=== PATIENT | female | born 1985 | race Caucasian/White ===

== ENCOUNTER 2017-07-14 16:04 | Emergency (ER) | payer BC ==
[2017-07-14 16:16] VITALS: BP 176/103
[2017-07-14] MEDS ORDERED: Proparacaine 0.5% Ophth Soln 15 ML Bottle EYELF ONE (16:23)
[2017-07-14] MEDS ORDERED: Benoxinate/Fluorescein 0.4-0.25% Ophth Soln 5 ML Bottle EYERT ONE (16:24)
[2017-07-14] MEDS ORDERED: Erythromycin Base 0.5% Ophth Oint 1 GM Tube EYERT ONE (16:51)
--- NOTE | 2017-07-14 16:56 | EDM.PDOC ---
ED HPI GENERAL MEDICAL PROBLEM - General Chief Complaint: Eye Problems Stated Complaint: R EYE PROBLEMS Time Seen by Provider: 07/14/17 16:32 Source of Information: Reports: Patient History Limitations: Reports: No Limitations - History of Present Illness INITIAL COMMENTS - FREE TEXT/NARRATIVE: Patient is a 31-year-old female presents ED with sensation of a foreign object in her right eye. States this morning while going to work starting experiencing some discomfort to her right eye and started to rub it. Has had excessive tearing throughout the course today. Has flushed it multiple times with no luck. States she has no pain but sensation of foreign objects present. She wears glasses and no contacts. Treatments [employer]ANGER: Reports: Other (see below) Other Treatments [employer]ANGER: flushed eyes right eye Pain Score (Numeric/FACES): 4 - Related Data Allergies Allergy/AdvReac Type Severity Reaction Status Date / Time No Known Allergies Allergy Verified 07/14/17 16:16 Home Meds: Home Meds Cyclobenzaprine HCl [Cyclobenzaprine HCl] 1 tab PO ASDIRECTED PRN 07/14/17 [ History] Levonorgestrel-Ethin Estradiol [Aviane-28 Tablet] 1 tab PO DAILY 07/14/17 [ History] Multivitamin [Multi-Day Vitamins] 1 each PO DAILY 07/14/17 [History] Pantoprazole Sodium [Pantoprazole Sodium] 1 tab PO DAILY 07/14/17 [History] Sucralfate [Sucralfate] 1 dose PO BID 07/14/17 [History] Venlafaxine HCl [Venlafaxine ER] 1 tab PO DAILY 07/14/17 [History] Past Medical History Psychiatric History: Reports: Depression - Past Surgical History HEENT Surgical History: Reports: Tonsillectomy GI Surgical History: Reports: Bariatric Procedure Musculoskeletal Surgical History: Reports: Other (See Below) Other Musculoskeletal Surgeries/Procedures:: back surgery x 2 Social & Family History - Family History Family Medical History: Noncontributory - Tobacco Use Smoking Status *Q: Never Smoker - Caffeine Use Caffeine Use: Reports: Coffee - Recreational Drug Use Recreational Drug Use: No ED ROS GENERAL - Review of Systems Review Of Systems: ROS reveals no pertinent complaints other than HPI. ED EXAM GENERAL W FULL EYE - Physical Exam Exam: See Below Exam Limited By: No Limitations General Appearance: Alert, WD/WN, No Apparent Distress Eye Exam: Right Eye: Conjunctival Injection (None found), Corneal Abrasion, Bilateral Eye: EOMI, PERRL, Vision Changes (None stated) Visual Acuity (R) 20/: 70 Visual Acuity (L) 20/: 70 With Correction: No Eyelids: Right: Normal Appearance, Foreign Body (None found), Infraorbital Anesthesia, Lid Everted for Exam Conjunctiva & Sclera: Right: Normal Appearance, Foreign Body (None found) Cornea Exam: Right: Corneal Abrasion (Linear 9:00), Foreign Body (None found), Examined with Flourescein Extraocular Movements: Bilateral: Intact Pupils: Normal Accommodation Pupillary Size: Bilateral: 4 mm Pupillary Reaction: Bilateral: Brisk Ears: Hearing Grossly Normal Nose: Normal Inspection Throat/Mouth: Normal Voice, No Airway Compromise Neck: Normal Inspection, Supple Respiratory/Chest: No Respiratory Distress, No Accessory Muscle Use Cardiovascular: Normal Peripheral Pulses, Regular Rate, Rhythm Neurological: Alert, Oriented, CN II-XII Intact, Normal Cognition, No Motor/ Sensory Deficits Psychiatric: Normal Affect, Normal Mood Skin Exam: Warm, Dry Course - Vital Signs Last Recorded V/S: Last Vital Signs Temp 97.8 F 07/14/17 16:08 Pulse 86 07/14/17 16:08 Resp 18 07/14/17 16:08 BP 176/103 H 07/14/17 16:08 Pulse Ox 99 07/14/17 16:08 - Orders/Labs/Meds Meds: Medications Discontinued Medications Generic Name Dose Route Start Last Admin Trade Name John PRN Reason Stop Dose Admin Erythromycin 1 gm 07/14/17 16:51 07/14/17 17:12 Erythromycin 0.5% Ophth Oint EYERT 07/14/17 16:52 1 applic ONETIME ONE Administration Fluorescein Sodium/Benoxinate HCl 1 ml 07/14/17 16:24 07/14/17 16:26 Fluress Ophth Soln EYERT 07/14/17 16:25 1 ml ONETIME ONE Administration Proparacaine HCl 1 ml 07/14/17 16:23 07/14/17 16:26 Proparacaine 0.5% Ophth Soln EYELF 07/14/17 16:24 1 ml ONETIME ONE Administration - Re-Assessments/Exams Free Text/Narrative Re-Assessment/Exam: Corneal abrasion present. Erythromycin ointment ordered. Tube sent with patient. Discharge instructions as documented. Departure - Departure Time of Disposition: 17:14 Disposition: Home, Self-Care 01 Condition: Good Clinical Impression: Corneal abrasion - Discharge Information Instructions: Corneal Abrasion, [id number] Referrals: Jeannie Brock, NETWORK DESIGNER [Primary Care Provider] - Forms: ED Department Discharge Additional Instructions: As discussed you have a corneal abrasion. Treatment is erythromycin 1 cm ribbon to the right eye 4 times daily for the next 7 days. Tylenol and ibuprofen and alternate fashion for pain. Follow-up with your Jaquan interest in the next 2 days for reevaluation. Return to ED for any new or worsening symptoms. Do not rub your eyes.
== END 2017-07-14 17:16 | disposition home or self-care (01) ==
LOC: JD.ED 16:04
DX: Z79.899 Other long term (current) drug therapy (principal); S05.01XA Injury of conjunctiva and corneal abrasion without foreign body, right eye, initial encounter; X58.XXXA Exposure to other specified factors, initial encounter
CPT/HCPCS: 99283; A9270

== ENCOUNTER 2017-10-28 16:56 | Emergency (ER) | payer BC ==
--- NOTE | 2017-10-28 17:27 | EDM.PDOC ---
ED HPI GENERAL MEDICAL PROBLEM - General Chief Complaint: Behavioral/Psych Stated Complaint: HIGH BP Time Seen by Provider: 10/28/17 17:10 Source of Information: Reports: Patient History Limitations: Reports: No Limitations - History of Present Illness INITIAL COMMENTS - FREE TEXT/NARRATIVE: Patient is a 32-year-old female with a history of anxiety and depression who presents ED with concerns of elevated blood pressure. Patient was evaluated by PCP today since patient was experiencing persistent headache after recent fall this weekend. Patient fell hitting the right side of her head on the ground. There was no loss of conscious. Headache has been mild since onset. There is no vision changes, nausea/vomiting, neck pain, no n/t to extremities, chest pain, SOB, dysuria, or any additional complaints. She was seen by PCP and had CT of the head obtained. During evaluation it was found patient's blood pressure was quite elevated which is abnormal. Labs were obtained prior to admission to the ED. Patient was referred to the ED to discuss results and also further manage the BP. Of note patient was seen in the walk-in clinic at [facility] 2 weeks ago for sinus infection. At that time it was found that the patient's blood pressure was quite elevated as well. She has a history of high blood pressure in the past that decreased with losing weight after having gastric bypass. Patient does not consume a high salt diet. She does work on a regular basis. She offers no complaints at this time. She is quite stressed at work. Headache Pain Score (Numeric/FACES): 5 - Related Data Allergies Allergy/AdvReac Type Severity Reaction Status Date / Time No Known Allergies Allergy Verified 07/14/17 16:16 Home Meds: Home Meds Cyclobenzaprine HCl [Cyclobenzaprine HCl] 1 tab PO ASDIRECTED PRN 07/14/17 [ History] Levonorgestrel-Ethin Estradiol [Aviane-28 Tablet] 1 tab PO DAILY 07/14/17 [ History] Multivitamin [Multi-Day Vitamins] 1 each PO DAILY 07/14/17 [History] Pantoprazole Sodium [Pantoprazole Sodium] 1 tab PO DAILY 07/14/17 [History] Sucralfate [Sucralfate] 1 dose PO BID 07/14/17 [History] Venlafaxine HCl [Venlafaxine ER] 1 tab PO DAILY 10/23/17 [History] Hydrochlorothiazide 25 mg PO DAILY #30 tab 10/28/17 [Rx] Venlafaxine HCl [Venlafaxine ER] 75 mg PO DAILY 10/28/17 [History] Past Medical History Psychiatric History: Reports: Depression - Past Surgical History HEENT Surgical History: Reports: Tonsillectomy GI Surgical History: Reports: Bariatric Procedure Musculoskeletal Surgical History: Reports: Other (See Below) Other Musculoskeletal Surgeries/Procedures:: back surgery x 2 Social & Family History - Family History Family Medical History: Noncontributory - Tobacco Use Smoking Status *Q: Former Smoker Used Tobacco, but Quit: Yes Month Tobacco Last Used: two years ago Second Hand Smoke Exposure: No - Caffeine Use Caffeine Use: Reports: Coffee - Recreational Drug Use Recreational Drug Use: No ED ROS GENERAL - Review of Systems Review Of Systems: See Below Constitutional: Reports: No Symptoms HEENT: Reports: No Symptoms Respiratory: Reports: No Symptoms Cardiovascular: Reports: No Symptoms GI/Abdominal: Reports: No Symptoms Musculoskeletal: Reports: No Symptoms Skin: Reports: No Symptoms Neurological: Reports: No Symptoms Psychiatric: Reports: Anxiety, Depression ED EXAM, GENERAL - Physical Exam Exam: See Below Exam Limited By: No Limitations General Appearance: Alert, WD/WN, No Apparent Distress Ears: Hearing Grossly Normal Nose: Normal Inspection Throat/Mouth: Normal Inspection, Normal Voice, No Airway Compromise Neck: Normal Inspection, Supple Respiratory/Chest: No Respiratory Distress, Lungs Clear, Normal Breath Sounds, Chest Non-Tender Cardiovascular: Normal Peripheral Pulses, Regular Rate, Rhythm, No Edema, No Gallop, No JVD, No Murmur, No Rub (Female) Exam: Normal External Exam, Normal Speculum Exam, Normal Bimanual Exam Rectal (Female) Exam: Normal Exam, Normal Rectal Tone Back Exam: Normal Inspection, Full Range of Motion, NT Extremities: Normal Inspection, Normal Range of Motion, Non-Tender, Normal Capillary Refill, No Pedal Edema Neurological: Alert, Oriented, CN II-XII Intact, Normal Cognition, Normal Gait, Normal Reflexes, No Motor/Sensory Deficits Psychiatric: Normal Affect, Normal Mood Skin Exam: Warm, Dry, Intact, Normal Color, No Rash Lymphatic: No Adenopathy Course - Vital Signs Last Recorded V/S: Last Vital Signs Temp 98.0 F 10/28/17 17:04 Pulse 60 10/28/17 18:50 Resp 22 H 10/28/17 18:50 BP 180/113 H 10/28/17 18:50 Pulse Ox 100 10/28/17 18:50 - Orders/Labs/Meds Labs: Laboratory Tests 10/28/17 Range/Units 16:50 TSH 3rd Generation 2.081 (0.358-3.74) uIU/mL Meds: Medications Discontinued Medications Generic Name Dose Route Start Last Admin Trade Name John PRN Reason Stop Dose Admin Hydrochlorothiazide 25 mg 10/28/17 18:11 10/28/17 18:23 Hydrochlorothiazide PO 10/28/17 18:12 25 mg ONETIME ONE Administration - Re-Assessments/Exams Free Text/Narrative Re-Assessment/Exam: CT of the head obtained by PCP did not reveal any acute findings. Labs obtained prior to admission to the ED included CBC and a chem 14. Waiting for results. I also ordered a TSH and EKG. 10/28/17 18:33 Labs obtained today include CBC, chem 14, TSH, and UA. All labs were essentially normal. EKG: Sinus rhytm rate of 74. No acute findings noted. Ordered HCTZ 25mg PO. BP 169/105 trending downward. Will not start patient on any additional HTN medications at this time. Patient will followup with PCP in 1 wk for reevaluation. Lifestyle modifications have been discussed with patient. Discharge instructions as documented. Departure - Departure Time of Disposition: 18:38 Disposition: Home, Self-Care 01 Condition: Good Clinical Impression: Anxiety HTN (hypertension) Qualifiers: Hypertension type: unspecified Qualified Code(s): I10 - Essential (primary) hypertension Prescriptions: Hydrochlorothiazide 25 mg PO DAILY #30 tab Instructions: Hypertension, [id number] Referrals: Jeannie Brock HEATING MECHANIC [Primary Care Provider] - Forms: ED Department Discharge, ED Return to Work/School Form Additional Instructions: Will have you take hydrochlorothiazide 25 mg every day. By a blood pressure machine a local pharmacy and check it daily keeping a log. Bring the blood pressure machine and log with used to appointment with PCP in one week for reevaluation. Inc. lifestyle modification's as we discussed. Continue taking all your home medications as prescribed. Urine anxiety may be a contributing factor to elevated blood pressure. Effexor can worsen anxiety thus with PCP for other options. Return to ED if he developed any new or worsening symptoms. Blood work should be obtained to evaluate electrolytes when seen by PCP.
[2017-10-28] MEDS ORDERED: Hydrochlorothiazide 25 MG Tab PO ONE (18:11)
[2017-10-28 18:54] VITALS: BP 180/113
== END 2017-10-28 18:50 | disposition home or self-care (01) ==
LOC: JD.ED 16:56
DX: F41.9 Anxiety disorder, unspecified (principal); I10 Essential (primary) hypertension; Z79.899 Other long term (current) drug therapy; Z87.891 Personal history of nicotine dependence; S83.91XA Sprain of unspecified site of right knee, initial encounter
CPT/HCPCS: 36415; 70450; 73562; 80053; 81001; 81025; 84443; 93005; 99284; A9270

== ENCOUNTER 2017-11-28 17:59 | Emergency (ER) | payer BC ==
[2017-11-28] MEDS ORDERED: cloNIDine 0.1 MG Tab PO ONE (19:19)
--- NOTE | 2017-11-28 19:30 | EDM.PDOC ---
ED HPI GENERAL MEDICAL PROBLEM - General Chief Complaint: Cardiovascular Problem Stated Complaint: HIGH BLOOD PRESSURE SENT FROM OUR CLINIC Time Seen by Provider: 11/28/17 18:38 Source of Information: Reports: Patient History Limitations: Reports: No Limitations - History of Present Illness INITIAL COMMENTS - FREE TEXT/NARRATIVE: This is a 32-year-old female. She is being treated for high blood pressure. She is on lisinopril 5 mg and hydrochlorothiazide 12.5 mg. Apparently over the last couple of days she has noted her blood pressure is been elevated and she tried to see her family doctor Jeannie Brock M.D. today but she was out of the office so she went to the walk-in clinic. Apparently the blood pressure was elevated there and they sent her to the ER for evaluation. She does take medications for anxiety but she doesn't think that she is particularly anxious at this time. When I walked into the room her blood pressure was 157/104 and it jumped up to 167/131. She states that today she has been having some chest pressure and she feels like her heart is fluttering in her chest as well. She has been on her medications for about 1 month. She denies any recent illnesses. No [id number] medications or decongestants. No colds or coughs now. She recently got over a sinus infection and respiratory infection for which she was on amoxicillin. He denies any nausea and vomiting. With the elevated blood pressure she been lightheaded or she describes it as dizzy but no vertigo. Headache Pain Score (Numeric/FACES): 4 - Related Data Allergies Allergy/AdvReac Type Severity Reaction Status Date / Time No Known Allergies Allergy Verified 11/28/17 18:22 Home Meds: Home Meds Cyclobenzaprine HCl [Cyclobenzaprine HCl] 1 tab PO TID PRN 07/14/17 [History] Levonorgestrel-Ethin Estradiol [Aviane-28 Tablet] 1 tab PO DAILY 07/14/17 [ History] Multivitamin [Multi-Day Vitamins] 1 each PO DAILY 07/14/17 [History] Pantoprazole Sodium [Pantoprazole Sodium] 1 tab PO DAILY 07/14/17 [History] Sucralfate [Sucralfate] 1 dose PO QID 07/14/17 [History] Hydrochlorothiazide 25 mg PO DAILY #30 tab 10/28/17 [Rx] LORazepam [Ativan] 1 mg PO BEDTIME PRN 11/28/17 [History] Lisinopril [Prinivil] 5 mg PO DAILY 11/28/17 [History] Venlafaxine [Effexor XR] 37.5 mg PO BID 11/28/17 [History] Venlafaxine [Effexor XR] 75 mg PO BID 11/28/17 [History] busPIRone [Buspar] 5 mg PO TID 11/28/17 [History] Past Medical History HEENT History: Reports: Impaired Vision Other HEENT History: wears eyeglasses. Cardiovascular History: Reports: Arrhythmia, High Cholesterol, Hypertension Respiratory History: Reports: Pneumonia, Recurrent Gastrointestinal History: Reports: GERD, PUD Genitourinary History: Reports: UTI, Recurrent Musculoskeletal History: Reports: Back Pain, Chronic Psychiatric History: Reports: Depression Dermatologic History: Reports: Eczema - Infectious Disease History Infectious Disease History: Reports: Chicken Pox - Past Surgical History HEENT Surgical History: Reports: Tonsillectomy GI Surgical History: Reports: Bariatric Procedure Musculoskeletal Surgical History: Reports: Other (See Below) Other Musculoskeletal Surgeries/Procedures:: back surgery x 2 Social & Family History - Family History Family Medical History: Noncontributory Cardiac: Reports: Other (See Below) Other Cardiac Family History: states uncle has an extra chamber in his heart - Tobacco Use Smoking Status *Q: Former Smoker Used Tobacco, but Quit: Yes Month Tobacco Last Used: 2 years Second Hand Smoke Exposure: No - Caffeine Use Caffeine Use: Reports: None - Recreational Drug Use Recreational Drug Use: No ED ROS GENERAL - Review of Systems Review Of Systems: See Below Constitutional: Denies: Fever, Chills HEENT: Reports: No Symptoms Respiratory: Denies: Shortness of Breath, Cough Cardiovascular: Reports: Chest Pain, Lightheadedness. Denies: Edema Endocrine: Reports: No Symptoms GI/Abdominal: Denies: Abdominal Pain, Diarrhea, Nausea, Vomiting : Reports: No Symptoms Musculoskeletal: Reports: No Symptoms Skin: Reports: No Symptoms Neurological: Reports: Dizziness Psychiatric: Reports: Anxiety Hematologic/Lymphatic: Reports: No Symptoms Immunologic: Reports: No Symptoms ED EXAM, GENERAL - Physical Exam Exam: See Below Exam Limited By: No Limitations General Appearance: Alert, WD/WN, No Apparent Distress Eye Exam: Bilateral Eye: Normal Inspection (the patient has a right lazy eye with lateral gaze) Ears: Normal External Exam, Normal Canal, Normal TMs Nose: Normal Inspection Throat/Mouth: Normal Inspection, Normal Lips, Normal Oropharynx, Normal Voice, No Airway Compromise Head: Normocephalic Neck: Supple Respiratory/Chest: No Respiratory Distress, Lungs Clear, Normal Breath Sounds Cardiovascular: Regular Rate, Rhythm, No Murmur. No: Bradycardia, Tachycardia GI/Abdominal: Soft Back Exam: Full Range of Motion Extremities: Normal Inspection, Normal Range of Motion Neurological: Alert, Oriented Psychiatric: Normal Affect, Normal Mood. No: Anxious Skin Exam: Warm, Dry EKG INTERPRETATION EKG Date: 11/28/17 Time: 19:34 EKG Interpretation Comments: EKG shows a normal sinus rhythm. There is no acute ST or T wave changes there is no ischemia noted. Course - Vital Signs Last Recorded V/S: Last Vital Signs Temp 97.4 F 11/28/17 18:17 Pulse 64 11/28/17 18:17 Resp 18 11/28/17 18:17 BP 169/131 H 11/28/17 19:30 Pulse Ox 100 11/28/17 18:17 - Orders/Labs/Meds Orders: Active Orders 24 hr Category Date Time Status EKG 12 Lead [EKG Documentation Completion] [RC] STAT Care 11/28/17 19:20 Active Labs: Laboratory Tests 11/28/17 11/28/17 Range/Units 19:29 19:29 WBC 5.16 (3.98-10.04) K/mm3 RBC 4.36 (3.98-5.22) M/mm3 Hgb 14.1 (11.2-15.7) gm/L Hct 40.2 (34.1-44.9) % MCV 92.2 (79.4-94.8) fl MCH 32.3 H (25.6-32.2) pg MCHC 35.1 (32.2-35.5) g/dl RDW Std Deviation 40.9 (36.4-46.3) fL Plt Count 237 (182-369) K/mm3 MPV 10.2 (9.4-12.3) fl Neut % (Auto) 58.7 (34.0-71.1) % Lymph % (Auto) 33.5 (19.3-51.7) % Bullock % (Auto) 7.4 (4.7-12.5) % Eos % (Auto) 0.2 L (0.7-5.8) Baso % (Auto) 0.2 (0.1-1.2) % Neut # (Auto) 3.03 (1.56-6.13) K/mm3 Lymph # (Auto) 1.73 (1.18-3.74) K/mm3 Bullock # (Auto) 0.38 H (0.24-0.36) K/mm3 Eos # (Auto) 0.01 L (0.04-0.36) K/mm3 Baso # (Auto) 0.01 (0.01-0.08) K/mm3 Sodium 136 (136-145) mEq/L Potassium 3.7 (3.5-5.1) mEq/L Chloride 99 (98-107) mEq/L Carbon Dioxide 29 (21-32) mEq/L Anion Gap 11.7 (5-15) BUN 18 (7-18) mg/dL Creatinine 1.0 (0.55-1.02) mg/dL Est Cr Clr Drug Dosing 63.88 mL/min Estimated GFR (MDRD) > 60 (>60) mL/min BUN/Creatinine Ratio 18.0 (14-18) Glucose 86 (74-106) mg/dL Calcium 9.7 (8.5-10.1) mg/dL Total Bilirubin 1.0 (0.2-1.0) mg/dL AST 33 (15-37) U/L ALT 62 H (14-59) U/L Alkaline Phosphatase 99 (46-116) U/L Troponin I < 0.017 (0.00-0.056) ng/mL Total Protein 7.6 (6.4-8.2) g/dl Albumin 4.2 (3.4-5.0) g/dl Globulin 3.4 gm/dL Albumin/Globulin Ratio 1.2 (1-2) Meds: Medications Discontinued Medications Generic Name Dose Route Start Last Admin Trade Name Freq PRN Reason Stop Dose Admin Clonidine HCl 0.2 mg 11/28/17 19:19 11/28/17 19:30 Catapres PO 11/28/17 19:20 0.2 mg ONETIME ONE Administration - Re-Assessments/Exams Free Text/Narrative Re-Assessment/Exam: 11/28/17 21:27 After the clonidine the blood pressure came down to 128/67 she is feeling good. She wants to go home. I explained her EKG looked normal and that her lab work is absolutely normal with a good potassium of 3.7 and troponin was negative. We' ll going to increase her blood pressure medications to 10 mg lisinopril and 25 mg of hydrochlorothiazide a day. She understands this and she knows to follow up with her family doctor next week. Departure - Departure Time of Disposition: 21:29 Disposition: Home, Self-Care 01 Condition: Good Clinical Impression: Elevated blood pressure reading Chest pain Qualifiers: Chest pain type: unspecified Qualified Code(s): R07.9 - Chest pain, unspecified Headache Qualifiers: Headache type: unspecified Headache chronicity pattern: acute headache Intractability: not intractable Qualified Code(s): R51 - Headache Referrals: Jeannie Brock ALUMINUM CONTAINER TESTER [Primary Care Provider] - Forms: ED Department Discharge Additional Instructions: Increase your lisinopril to 10 mg a day and hydrochlorothiazide to 25 mg a day, continue to monitor your blood pressures at home and keep your reading so when you follow-up with your family doctor next week they will have an idea of what your blood pressures are running now, if you have additional symptoms and elevated blood pressure especially with the chest tightness or headache return to the ER over the weekend. - My Orders Last 24 Hours: My Active Orders 11/28/17 19:20 EKG 12 Lead [EKG Documentation Completion] [RC] STAT - Assessment/Plan Last 24 Hours: My Active Orders 11/28/17 19:20 EKG 12 Lead [EKG Documentation Completion] [RC] STAT
[2017-11-28 19:31] VITALS: BP 169/131
== END 2017-11-28 21:39 | disposition home or self-care (01) ==
LOC: JD.ED 17:59
DX: I10 Essential (primary) hypertension (principal); R07.9 Chest pain, unspecified; E78.00 Pure hypercholesterolemia, unspecified; K21.9 Gastro-esophageal reflux disease without esophagitis; F41.9 Anxiety disorder, unspecified; F32.9 Major depressive disorder, single episode, unspecified; Z87.891 Personal history of nicotine dependence; Z79.899 Other long term (current) drug therapy
CPT/HCPCS: 36415; 80053; 84484; 85025; 93005; 99284; A9270; 93010

== ENCOUNTER 2019-08-17 13:24 | Emergency (ER) | payer BC ==
[2019-08-17 13:33] VITALS: BP 180/99; PULSE 79
[2019-08-17] MEDS ORDERED: Ketorolac 30 MG/ML SDV IVPUSH ONE (14:10)
[2019-08-17] MEDS ORDERED: Sodium Chloride 0.9% 10 ML Syringe FLUSH PRN (14:10)
[2019-08-17] MEDS ORDERED: Sodium Chloride 0.9% 1,000 ML IV ONE (14:15)
[2019-08-17] MEDS ORDERED: LORazepam 2 MG/ML SDV IVPUSH ONE (14:17)
--- NOTE | 2019-08-17 14:23 | EDM.PDOC ---
ED HPI GENERAL MEDICAL PROBLEM - General Chief Complaint: Cardiovascular Problem Stated Complaint: [facility] sent over bp very high Time Seen by Provider: 08/17/19 13:48 Source of Information: Reports: Patient, Old Records (old visits here and pt has her [facility] My chart poonam with previous health information), RN Notes Reviewed History Limitations: Reports: No Limitations - History of Present Illness INITIAL COMMENTS - FREE TEXT/NARRATIVE: Patient is a 33-year-old female who presents to the ED for an evaluation of elevated blood pressure. The patient notes that she had a gastric bypass done in 2015. She has been on blood pressure medication for quite some time. She notes that she is on 20 mg BID lisinopril, and 25 mg hydrochlorothiazide daily for her blood pressure. She states that this was last changed around 6 months ago. Patient notes that since this last Friday, she has had some increased dizziness, frontal headache, and increase in her diastolic blood pressure intermittently. She does have her monitor at home, and has been checking this at home. Her diastolic blood pressures been 100-1 10 at home. Patient does have a history of anxiety, and is taking her Effexor as prescribed, and states she has been using Ativan, 1 mg nightly 2-3 times per week for the past few weeks, as she has had increasing family stress and work stress. She notes that she has a horrible family history of heart disease, states that her grandfather had a quadruple bypass, and her father also had major heart surgery. She herself has not had a cardiology referral, and she believes her last echo was done in 2015, she cannot remember what her ejection fraction was at that time. Her primary care provider is Vidhya Gill. Patient states that after her bypass she did quit smoking, however she took the habit up again, and was smoking one pack/day for the longest time, but has decreased this now to 1/4 pack/day. She is also using a nicotine patch, 21 mg, to help to try to stop smoking. She notes that she does have an appointment with Nandini Trinh on August 27 for medication refill as Vidhya is out on maternity leave. Treatments WAREHOUSE DISTRIBUTION MANAGER: Reports: Other (see below) Other Treatments WAREHOUSE DISTRIBUTION MANAGER: tylenol for headache Frontal Forehead Pain Score (Numeric/FACES): 3 - Related Data Allergies Allergy/AdvReac Type Severity Reaction Status Date / Time No Known Allergies Allergy Verified 11/28/17 18:22 Home Meds: Home Meds Cyclobenzaprine HCl 1 tab PO TID PRN 07/14/17 [History] Pantoprazole Sodium 1 tab PO DAILY 07/14/17 [History] Sucralfate 1 dose PO QID 07/14/17 [History] hydroCHLOROthiazide [Hydrochlorothiazide] 25 mg PO DAILY #30 tab 10/28/17 [Rx] LORazepam [Ativan] 1 mg PO BID PRN 11/28/17 [History] Lisinopril [Prinivil] 20 mg PO BID 11/28/17 [History] Venlafaxine [Effexor XR] 225 mg PO DAILY 11/28/17 [History] busPIRone [Buspar] 10 mg PO TID 11/28/17 [History] Magnesium 400 mg PO DAILY 08/17/19 [History] Past Medical History HEENT History: Reports: Impaired Vision Other HEENT History: wears eyeglasses. Cardiovascular History: Reports: Arrhythmia, High Cholesterol, Hypertension Respiratory History: Reports: Intubation, Previous (had aspiration pneumonia after gastric bypass requiring ICU x 4 days in 2016.) Gastrointestinal History: Reports: GERD, PUD Genitourinary History: Reports: UTI, Recurrent Musculoskeletal History: Reports: Back Pain, Chronic Psychiatric History: Reports: Depression Dermatologic History: Reports: Eczema - Infectious Disease History Infectious Disease History: Reports: Chicken Pox - Past Surgical History HEENT Surgical History: Reports: Tonsillectomy GI Surgical History: Reports: Bariatric Procedure (gastric bypass in 2016) Musculoskeletal Surgical History: Reports: Other (See Below) Other Musculoskeletal Surgeries/Procedures:: back surgery x 2 Social & Family History - Family History Cardiac: Reports: Bypass (Grandfather w/ quadruple bypass), Other (See Below) Other Cardiac Family History: states uncle has an extra chamber in his heart, states grandfather has had quadruple bypass - Tobacco Use Smoking Status *Q: Current Every Day Smoker Years of Tobacco use: 14 Packs/Tins Daily: 0.2 Packs/Tins Daily Comment: 09/25ppd, on nicotine patch to try to quit Used Tobacco, but Quit: Yes Tobacco Use Comment: had stopped smoking briefly after gastric bypass in 2016, but started again - Caffeine Use Caffeine Use: Reports: Coffee - Recreational Drug Use Recreational Drug Use: No - Living Situation & Occupation Occupation: Employed ED ROS GENERAL - Review of Systems Review Of Systems: See Below Constitutional: Denies: Fever, Chills HEENT: Reports: No Symptoms Respiratory: Denies: Shortness of Breath Cardiovascular: Denies: Chest Pain Endocrine: Reports: No Symptoms GI/Abdominal: Denies: Abdominal Pain, Constipation, Diarrhea, Nausea, Vomiting : Reports: No Symptoms Musculoskeletal: Reports: No Symptoms Skin: Reports: No Symptoms Neurological: Reports: Headache (frontal LEA) Psychiatric: Reports: Anxiety Hematologic/Lymphatic: Reports: No Symptoms Immunologic: Reports: No Symptoms ED EXAM, GENERAL - Physical Exam Exam: See Below Exam Limited By: No Limitations General Appearance: Alert, WD/WN, No Apparent Distress Eye Exam: Bilateral Eye: EOMI, Normal Inspection, PERRL Throat/Mouth: Normal Inspection, Normal Lips, Normal Teeth, Normal Gums, Normal Oropharynx, Normal Voice, No Airway Compromise Head: Atraumatic, Normocephalic Neck: Normal Inspection Respiratory/Chest: No Respiratory Distress, Lungs Clear, Normal Breath Sounds, No Accessory Muscle Use, Chest Non-Tender Cardiovascular: Normal Peripheral Pulses, Regular Rate, Rhythm, No Murmur Peripheral Pulses: 3+: Radial (L), Radial (R) GI/Abdominal: Normal Bowel Sounds, Soft, Non-Tender, No Distention, No Mass Extremities: Normal Inspection, Normal Capillary Refill Neurological: Alert, Oriented, Normal Cognition, No Motor/Sensory Deficits Psychiatric: Normal Affect, Normal Mood Skin Exam: Warm, Dry, Intact, Normal Color, No Rash EKG INTERPRETATION EKG Date: 08/17/19 Time: 14:23 Rhythm: NSR Rate (Beats/Min): 86 [place]: Normal P-Wave: Present ST-T: Normal QT: Normal Comparison: No Change EKG Interpretation Comments: Normal ECG, no acute ischemic changes. Reviewed by myself and Dr. Larsen Course - Vital Signs Last Recorded V/S: Last Vital Signs Temp 98.2 F 08/17/19 13:32 Pulse 79 08/17/19 13:32 Resp 20 08/17/19 13:32 BP 180/99 H 08/17/19 13:32 Pulse Ox 100 08/17/19 13:32 - Orders/Labs/Meds Orders: Active Orders 24 hr Category Date Time Status EKG Documentation Completion [RC] STAT Care 08/17/19 14:11 Active Peripheral IV Care [RC] . DIRECTED Care 08/17/19 14:11 Active CBC WITH MANUAL DIFF [HEME] Stat Lab 08/17/19 14:39 Results Sodium Chloride 0.9% [Saline Flush] Med 08/17/19 14:10 Active 10 ml FLUSH ASDIRECTED PRN Peripheral IV Insertion Adult [OM.PC] Routine Oth 08/17/19 14:11 Ordered Medication Orders Sodium Chloride (Saline Flush) 10 ml FLUSH ASDIRECTED PRN PRN Reason: Keep Vein Open Last Admin: 08/17/19 14:44 Dose: 10 ml Labs: Laboratory Tests 08/17/19 08/17/19 08/17/19 Range/Units 14:39 14:39 15:00 WBC 6.30 (3.98-10.04) K/mm3 RBC 4.51 (3.98-5.22) M/mm3 Hgb 14.4 (11.2-15.7) gm/dl Hct 42.2 (34.1-44.9) % MCV 93.6 (79.4-94.8) fl MCH 31.9 (25.6-32.2) pg MCHC 34.1 (32.2-35.5) g/dl RDW Std Deviation 41.9 (36.4-46.3) fL Plt Count 260 (182-369) K/mm3 MPV 10.3 (9.4-12.3) fl Sodium 134 L (136-145) mEq/L Potassium 4.1 (3.5-5.1) mEq/L Chloride 98 (98-107) mEq/L Carbon Dioxide 28 (21-32) mEq/L Anion Gap 12.1 (5-15) BUN 16 (7-18) mg/dL Creatinine 0.9 (0.55-1.02) mg/dL Est Cr Clr Drug Dosing 70.32 mL/min Estimated GFR (MDRD) > 60 (>60) mL/min BUN/Creatinine Ratio 17.8 (14-18) Glucose 90 (74-106) mg/dL Calcium 10.0 (8.5-10.1) mg/dL Magnesium 2.3 (1.8-2.4) mg/dl Total Bilirubin 1.2 H (0.2-1.0) mg/dL AST 17 (15-37) U/L ALT 26 (14-59) U/L Alkaline Phosphatase 88 (46-116) U/L Troponin I < 0.017 (0.00-0.056) ng/mL Total Protein 7.8 (6.4-8.2) g/dl Albumin 4.7 (3.4-5.0) g/dl Globulin 3.1 gm/dL Albumin/Globulin Ratio 1.5 (1-2) TSH 3rd Generation 1.349 (0.358-3.74) uIU/mL Urine Color Light yellow (Yellow) Urine Appearance Clear (Clear) Urine pH 7.5 (5.0-8.0) Ur Specific [place] 1.020 (1.005-1.030) Urine Protein Negative (Negative) Urine Glucose (UA) Negative (Negative) Urine Ketones Negative (Negative) Urine Occult Blood Negative (Negative) Urine Nitrite Negative (Negative) Urine Bilirubin Negative (Negative) Urine Urobilinogen 0.2 (0.2-1.0) Ur Leukocyte Esterase Negative (Negative) Urine RBC Not seen (0-5) /hpf Urine WBC 0-5 (0-5) /hpf Ur Squamous Epith Cells 0-5 (0-5) /hpf Urine Bacteria Not seen (FEW) /hpf Urine Mucus Not seen (FEW) /hpf Urine HCG, Qual (NEGATIVE) 08/17/19 Range/Units 15:00 WBC (3.98-10.04) K/mm3 RBC (3.98-5.22) M/mm3 Hgb (11.2-15.7) gm/dl Hct (34.1-44.9) % MCV (79.4-94.8) fl MCH (25.6-32.2) pg MCHC (32.2-35.5) g/dl RDW Std Deviation (36.4-46.3) fL Plt Count (182-369) K/mm3 MPV (9.4-12.3) fl Sodium (136-145) mEq/L Potassium (3.5-5.1) mEq/L Chloride (98-107) mEq/L Carbon Dioxide (21-32) mEq/L Anion Gap (5-15) BUN (7-18) mg/dL Creatinine (0.55-1.02) mg/dL Est Cr Clr Drug Dosing mL/min Estimated GFR (MDRD) (>60) mL/min BUN/Creatinine Ratio (14-18) Glucose (74-106) mg/dL Calcium (8.5-10.1) mg/dL Magnesium (1.8-2.4) mg/dl Total Bilirubin (0.2-1.0) mg/dL AST (15-37) U/L ALT (14-59) U/L Alkaline Phosphatase (46-116) U/L Troponin I (0.00-0.056) ng/mL Total Protein (6.4-8.2) g/dl Albumin (3.4-5.0) g/dl Globulin gm/dL Albumin/Globulin Ratio (1-2) TSH 3rd Generation (0.358-3.74) uIU/mL Urine Color (Yellow) Urine Appearance (Clear) Urine pH (5.0-8.0) Ur Specific [place] (1.005-1.030) Urine Protein (Negative) Urine Glucose (UA) (Negative) Urine Ketones (Negative) Urine Occult Blood (Negative) Urine Nitrite (Negative) Urine Bilirubin (Negative) Urine Urobilinogen (0.2-1.0) Ur Leukocyte Esterase (Negative) Urine RBC (0-5) /hpf Urine WBC (0-5) /hpf Ur Squamous Epith Cells (0-5) /hpf Urine Bacteria (FEW) /hpf Urine Mucus (FEW) /hpf Urine HCG, Qual Negative (NEGATIVE) Meds: Medications Generic Name Dose Route Start Last Admin Trade Name Frevance PRN Reason Stop Dose Admin Sodium Chloride 10 ml 08/17/19 14:10 08/17/19 14:44 Saline Flush FLUSH 10 ml ASDIRECTED PRN Administration Keep Vein Open Discontinued Medications Generic Name Dose Route Start Last Admin Trade Name Freq PRN Reason Stop Dose Admin Sodium Chloride 1,000 mls @ 500 mls/hr 08/17/19 14:15 08/17/19 14:42 Normal Saline IV 08/17/19 16:14 500 mls/hr ASDIRECTED ONE Administration Ketorolac Tromethamine 30 mg 08/17/19 14:10 08/17/19 14:43 Toradol IVPUSH 08/17/19 14:11 30 mg ONETIME ONE Administration Lorazepam 0.5 mg 08/17/19 14:17 11/26/19 14:43 Ativan IVPUSH 08/17/19 14:18 0.5 mg ONETIME ONE Administration - Re-Assessments/Exams Free Text/Narrative Re-Assessment/Exam: 08/17/19 14:31 Patient is a 33-year-old female who presents to the ED for evaluation of elevated blood pressure. Since she is already on lisinopril 20 mg twice daily and hydrochlorothiazide 25 mg daily, there is still some wiggle room to increase the lisinopril, will treat her symptoms today for the headache, and get some basic lab work to see if this reveals any underlying etiology. On recheck her blood pressure was 152/92. 08/17/19 16:19 Patient's laboratory evaluation is back, demonstrates no acute worrisome abnormalities. Troponin is negative, TSH within normal limits. Chest x-ray is also within normal limits with no acute abnormalities identified. At this time her blood pressure seems to be somewhat controlled, will have her follow-up with her regular provider. Patient states that she is supposed to see Nandini Trinh on August 27, but due to this being an ER follow-up she might be able to get in to be seen in clinic a little bit sooner. Departure - Departure Time of Disposition: 16:34 Disposition: Home, Self-Care 01 Condition: Fair Clinical Impression: Elevated blood pressure reading in office with diagnosis of hypertension, Anxiety Instructions: Managing Your Hypertension Referrals: Vidhya Gill NP [Primary Care Provider] - Forms: ED Department Discharge, ED Return to Work/School Form Additional Instructions: You were evaluated in the ER today regarding your elevated blood pressure readings at home. You were given some IV fluids, IV meds and had your labs checked, and these were within normal limits. There were no acute worrisome abnormalities identified at today's visit. An EKG and chest x-ray were also done, and these were both within normal limits as well. At this time your symptoms are most likely due to increased stress and anxiety, you may need to have your anxiety medication dosage adjusted by your primary care provider. Recommend that you take a half tablet of your Ativan at least twice daily for the next few days, to see if this does not help your symptoms. You should follow-up with your primary care provider, and request a ER follow- up visit, this may get your follow-up appointment bumped up in the schedule, so you can get seen a little bit earlier rather than on August 27. Please return to the ER at any time if your symptoms change or worsen. - My Orders Last 24 Hours: My Active Orders 08/17/19 14:10 Sodium Chloride 0.9% [Saline Flush] 10 ml FLUSH ASDIRECTED PRN 08/17/19 14:11 EKG Documentation Completion [RC] STAT Peripheral IV Care [RC] . DIRECTED Peripheral IV Insertion Adult [OM.PC] Routine 08/17/19 14:39 CBC WITH MANUAL DIFF [HEME] Stat - Assessment/Plan Last 24 Hours: My Active Orders 08/17/19 14:10 Sodium Chloride 0.9% [Saline Flush] 10 ml FLUSH ASDIRECTED PRN 08/17/19 14:11 EKG Documentation Completion [RC] STAT Peripheral IV Care [RC] . DIRECTED Peripheral IV Insertion Adult [OM.PC] Routine 08/17/19 14:39 CBC WITH MANUAL DIFF [HEME] Stat
--- NOTE | 2019-08-17 15:42 | CR ---
Chest: Two views of the chest were obtained. Comparison: No prior chest x-ray is available. Heart size and mediastinum are normal. Lungs are clear. Bony structures are within normal limits for the patient's age. Impression: 1. Nothing acute is seen on two-view chest x-ray. Diagnostic code #1 This report was dictated in [place] Standard Time
== END 2019-08-17 16:50 | disposition home or self-care (01) ==
LOC: JD.ED 13:24
DX: I10 Essential (primary) hypertension (principal); F41.9 Anxiety disorder, unspecified; K21.9 Gastro-esophageal reflux disease without esophagitis; F32.9 Major depressive disorder, single episode, unspecified; F17.210 Nicotine dependence, cigarettes, uncomplicated; Z79.899 Other long term (current) drug therapy
CPT/HCPCS: 36415; 71046; 80053; 81001; 81025; 83735; 84443; 84484; 85007; 85027; 93005; 96361; 96374; 96375; 99284; J1885; J2060; J7040; 93010

== ENCOUNTER 2019-09-03 12:32 | Emergency (ER) | payer BC | END 2019-09-03 13:31 | disposition left against medical advice (07) | LOC: JD.ED 12:32 | DX: Z53.21 Procedure and treatment not carried out due to patient leaving prior to being seen by health care provider (principal) ==

== ENCOUNTER 2019-09-03 17:12 | Emergency (ER) | payer BC ==
[2019-09-03 17:24] VITALS: BP 136/97; PULSE 95
--- NOTE | 2019-09-03 17:54 | EDM.PDOC ---
ED HPI GENERAL MEDICAL PROBLEM - General Chief Complaint: Respiratory Problem Stated Complaint: CHEST AND NASAL CONGESTION Time Seen by Provider: 09/03/19 17:38 Source of Information: Reports: Patient History Limitations: Reports: No Limitations - History of Present Illness INITIAL COMMENTS - FREE TEXT/NARRATIVE: Patient is a 33-year-old female who presents with complaints of cough and congestion for the last 3 days. She states that time she did feel short of breath but is not feeling this at this time. She did have a low-grade fever of 99.7 a couple days ago, however she denies any fever since that time. Patient states that she has a history of pneumonia that came on rapidly so she is concerned that this may be developing. She states that she is on "a tight regimen of medications for her bipolar 1 "so there is not many [id number] medications that she can take. She denies any as he vomiting or diarrhea. He denies a history of asthma. - Related Data Allergies Allergy/AdvReac Type Severity Reaction Status Date / Time No Known Allergies Allergy Verified 09/03/19 17:20 Home Meds: Home Meds LORazepam [Ativan] 1 mg PO TID PRN 09/03/19 [History] Pantoprazole Sodium 40 mg PO DAILY 09/03/19 [History] QUEtiapine [SEROquel] 50 mg PO QID 09/03/19 [History] QUEtiapine [SEROquel] 200 mg PO BEDTIME 09/03/19 [History] Sucralfate 1 gm PO QID 09/03/19 [History] Past Medical History HEENT History: Reports: Impaired Vision Other HEENT History: wears eyeglasses. Cardiovascular History: Reports: Arrhythmia, High Cholesterol, Hypertension Respiratory History: Reports: Intubation, Previous Gastrointestinal History: Reports: GERD, PUD Genitourinary History: Reports: UTI, Recurrent Musculoskeletal History: Reports: Back Pain, Chronic Psychiatric History: Reports: Bipolar, Depression Dermatologic History: Reports: Eczema - Infectious Disease History Infectious Disease History: Reports: Chicken Pox - Past Surgical History HEENT Surgical History: Reports: Tonsillectomy GI Surgical History: Reports: Bariatric Procedure Musculoskeletal Surgical History: Reports: Other (See Below) Other Musculoskeletal Surgeries/Procedures:: back surgery x 2 Social & Family History - Family History Family Medical History: Noncontributory Cardiac: Reports: Bypass, Other (See Below) Other Cardiac Family History: states uncle has an extra chamber in his heart, states grandfather has had quadruple bypass - Tobacco Use Smoking Status *Q: Current Every Day Smoker Years of Tobacco use: 12 Packs/Tins Daily: 0.5 - Caffeine Use Caffeine Use: Reports: Coffee - Recreational Drug Use Recreational Drug Use: No - Living Situation & Occupation Occupation: Employed ED ROS GENERAL - Review of Systems Review Of Systems: See Below Constitutional: Reports: Fever HEENT: Reports: No Symptoms, Rhinitis. Denies: Ear Pain, Throat Pain Respiratory: Reports: Shortness of Breath, Cough. Denies: Wheezing Cardiovascular: Reports: No Symptoms Endocrine: Reports: No Symptoms GI/Abdominal: Reports: No Symptoms. Denies: Abdominal Pain, Diarrhea, Nausea, Vomiting : Reports: No Symptoms Musculoskeletal: Reports: No Symptoms Skin: Reports: No Symptoms. Denies: Rash Neurological: Reports: No Symptoms. Denies: Dizziness, Headache Psychiatric: Reports: No Symptoms Hematologic/Lymphatic: Reports: No Symptoms Immunologic: Reports: No Symptoms ED EXAM, GENERAL - Physical Exam Exam: See Below Exam Limited By: No Limitations General Appearance: Alert, WD/WN, No Apparent Distress Ears: Normal External Exam, Normal Canal, Hearing Grossly Normal, Normal TMs Nose: Normal Inspection, Normal Mucosa, Clear Rhinorrhea Throat/Mouth: Normal Inspection, Normal Lips, Normal Gums, Normal Oropharynx, Normal Voice, No Airway Compromise Head: Atraumatic, Normocephalic Neck: Normal Inspection, Supple, Non-Tender Respiratory/Chest: No Respiratory Distress, Lungs Clear, Normal Breath Sounds, No Accessory Muscle Use, Chest Non-Tender Cardiovascular: Normal Peripheral Pulses, Regular Rate, Rhythm, No Edema, No Murmur Neurological: Alert, Oriented, Normal Cognition Psychiatric: Normal Affect, Normal Mood Skin Exam: Warm, Dry, Intact, Normal Color, No Rash Lymphatic: No Adenopathy Course - Vital Signs Last Recorded V/S: Last Vital Signs Temp 98.2 F 09/03/19 17:20 Pulse 95 09/03/19 17:20 Resp 17 09/03/19 17:20 BP 136/97 H 09/03/19 17:20 Pulse Ox 100 09/03/19 17:20 - Orders/Labs/Meds Orders: Active Orders 24 hr Category Date Time Status Chest 2V [CR] Stat Exams 09/03/19 17:48 Taken - Re-Assessments/Exams Free Text/Narrative Re-Assessment/Exam: Patient is a 33-year-old female who presents with complaints of cough, congestion, and intermittent shortness of breath the last 3 days. On exam she displays no signs of respiratory distress and her lung sounds are clear. He hasn't had a significant fever associated with this. She has no history of asthma however she does have a history of pneumonia that required inpatient hospitalization. I will do a chest x-ray to rule out pneumonia;, however, my suspicion for this is very low. 09/03/19 18:28 Chest x-ray shows no sign of infiltrates. I did discuss this with the patient and that is likely that she is suffering from a viral respiratory infection. She'll be discharged home with symptomatic care. Discharge instructions as follows. Departure - Departure Time of Disposition: 18:29 Disposition: Home, Self-Care 01 Condition: Fair Clinical Impression: Viral respiratory illness - Discharge Information *PRESCRIPTION DRUG MONITORING PROGRAM REVIEWED*: No *COPY OF PRESCRIPTION DRUG MONITORING REPORT IN PATIENT MAGGIE: No Instructions: Viral Respiratory Infection, [id number] Referrals: Vidhya Gill, PLASTER MAKER [Primary Care Provider] - Forms: ED Department Discharge Additional Instructions: You were seen in the emergency department today for cough, congestion, and intermittent shortness of breath. Your chest x-ray did not show any signs of pneumonia. It is likely that your suffering from a viral respiratory infection. We recommend that you rest and ensure that she receiving adequate fluid intake over the next couple days. He may use [id number] Tylenol or ibuprofen for any discomfort. If you should experience any new or worsening symptoms, please do not hesitate to return to the emergency department. Sepsis Event Note - Evaluation Sepsis Screening Result: No Definite Risk - Focused Exam Vital Signs: Vital Signs Temp Pulse Resp BP Pulse Ox 09/03/19 17:20 98.2 F 95 17 136/97 H 100 Date Exam was Performed: 09/03/19 Time Exam was Performed: 18:33 - My Orders Last 24 Hours: My Active Orders 09/03/19 17:48 Chest 2V [CR] Stat - Assessment/Plan Last 24 Hours: My Active Orders 09/03/19 17:48 Chest 2V [CR] Stat
--- NOTE | 2019-09-06 10:42 | CR ---
Chest: Two views of the chest were obtained. Comparison: Prior chest x-ray of 08/17/19. Heart size and mediastinum are normal. Lungs are clear. Bony structures are unremarkable for the patient's age. Minimal scoliosis is noted. Impression: 1. Nothing acute is appreciated on two-view chest x-ray. Diagnostic code #2 This report was dictated in [place] Standard Time
== END 2019-09-03 18:44 | disposition home or self-care (01) ==
LOC: JD.ED 17:12
DX: B34.9 Viral infection, unspecified (principal); I10 Essential (primary) hypertension; F17.210 Nicotine dependence, cigarettes, uncomplicated
CPT/HCPCS: 71046; 71046-26; 99281; 99284-25

== ENCOUNTER 2019-09-12 10:44 | Emergency (ER) | payer BC ==
[2019-09-12 11:12] VITALS: BP 142/83; PULSE 91
[2019-09-12] MEDS ORDERED: Ketorolac 60 MG/2 ML SDV IM ONE (11:14)
--- NOTE | 2019-09-12 11:20 | EDM.PDOC ---
ED HPI GENERAL MEDICAL PROBLEM - General Chief Complaint: General Stated Complaint: MEDICATION WITHDRAWAL Time Seen by Provider: 09/12/19 10:57 Source of Information: Reports: Patient History Limitations: Reports: No Limitations - History of Present Illness INITIAL COMMENTS - FREE TEXT/NARRATIVE: Patient's unfortunate 33-year-old female who presents emergency Department today with complaint of possible medication side effect headache sinus congestion for the past 2 weeks. She reports she has been seen here in the past multiple times for her anxiety and she was seen by her PCP for her anxiety and her hypertension was placed on multiple medications became concerned that she was not taking appropriate medications when saw psychiatrist was told she stop the Effexor that she was on and that was 2 weeks ago patient feels like she is still having side effects from effexor which she reports she got taking "cold turkey". Patient reports that she's had sinus pressure and sinus congestion for the past 2 weeks which he thinks is contravened to her current headache which she has wenches in the right temporal area which is "similar to previous headaches". She is concerned that she needs to have her medications changed time discussed with patient that we will not be adjusting her psychiatric medications this time Generalized Pain Score (Numeric/FACES): 5 - Related Data Allergies Allergy/AdvReac Type Severity Reaction Status Date / Time No Known Allergies Allergy Verified 09/03/19 17:20 Home Meds: Home Meds LORazepam [Ativan] 1 mg PO TID PRN 09/03/19 [History] Pantoprazole Sodium 40 mg PO DAILY 09/03/19 [History] QUEtiapine [SEROquel] 50 mg PO QID 09/03/19 [History] QUEtiapine [SEROquel] 200 mg PO BEDTIME 09/03/19 [History] Sucralfate 1 gm PO QID 09/03/19 [History] Amoxicillin 500 mg PO TID #21 tablet 09/12/19 [Rx] Ketorolac [Toradol] 10 mg PO TID PRN #15 tab 09/12/19 [Rx] Past Medical History HEENT History: Reports: Impaired Vision Other HEENT History: wears eyeglasses. Cardiovascular History: Reports: Arrhythmia, High Cholesterol, Hypertension Respiratory History: Reports: Intubation, Previous Gastrointestinal History: Reports: GERD, PUD Genitourinary History: Reports: UTI, Recurrent Musculoskeletal History: Reports: Back Pain, Chronic Psychiatric History: Reports: Bipolar, Depression Dermatologic History: Reports: Eczema - Infectious Disease History Infectious Disease History: Reports: Chicken Pox - Past Surgical History HEENT Surgical History: Reports: Tonsillectomy GI Surgical History: Reports: Bariatric Procedure Musculoskeletal Surgical History: Reports: Other (See Below) Other Musculoskeletal Surgeries/Procedures:: back surgery x 2 Social & Family History - Family History Family Medical History: Noncontributory Cardiac: Reports: Bypass, Other (See Below) Other Cardiac Family History: states uncle has an extra chamber in his heart, states grandfather has had quadruple bypass - Caffeine Use Caffeine Use: Reports: Coffee - Living Situation & Occupation Occupation: Employed ED ROS GENERAL - Review of Systems Review Of Systems: See Below Constitutional: Denies: Fever, Chills HEENT: Reports: Rhinitis Neurological: Reports: Headache ED EXAM, GENERAL - Physical Exam Exam: See Below Exam Limited By: No Limitations General Appearance: Alert, WD/WN, Mild Distress Ears: Normal External Exam, Normal Canal, Hearing Grossly Normal, Normal TMs Nose: Normal Inspection, Normal Mucosa, No Blood Throat/Mouth: Other (Posterior pharynx mild erythema with postnasal drip) Neck: Normal Inspection, Supple, Non-Tender, Full Range of Motion Respiratory/Chest: No Respiratory Distress, Lungs Clear, Normal Breath Sounds, No Accessory Muscle Use, Chest Non-Tender Cardiovascular: Normal Peripheral Pulses, Regular Rate, Rhythm, No Edema, No Gallop, No JVD, No Murmur, No Rub GI/Abdominal: Normal Bowel Sounds, Soft, Non-Tender, No Organomegaly, No Distention, No Abnormal Bruit, No Mass Back Exam: Normal Inspection, Full Range of Motion, NT Extremities: Normal Inspection, Normal Range of Motion, Non-Tender, Normal Capillary Refill, No Pedal Edema Neurological: Alert Psychiatric: Normal Affect Skin Exam: Warm, Dry, No Rash Course - Vital Signs Last Recorded V/S: Last Vital Signs Temp 96.7 F 09/12/19 10:58 Pulse 91 09/12/19 10:58 Resp 16 09/12/19 10:58 BP 142/83 H 09/12/19 10:58 Pulse Ox 100 09/12/19 10:58 - Orders/Labs/Meds Orders: Active Orders 24 hr Category Date Time Status Ketorolac [Toradol] Med 09/12/19 11:14 Once 60 mg IM ONETIME ONE - Re-Assessments/Exams Free Text/Narrative Re-Assessment/Exam: 09/12/19 11:17 Lengthy discussion was had with patient we will not be adjusting her psychiatric medication she needs follow-up with her psychiatrist for that, I suspect she is now longer having side effects from withdrawal from Effexor since it has been 2 weeks since she stopped the medication. Will treat her sinus infection and give her Toradol outpatient for her headache and have patient follow-up with her psychiatrist and PCP Departure - Departure Time of Disposition: 11:18 Disposition: Home, Self-Care 01 Clinical Impression: Headache Qualifiers: Headache type: unspecified Headache chronicity pattern: acute headache Intractability: not intractable Qualified Code(s): R51 - Headache Sinusitis Qualifiers: Sinusitis location: unspecified location Chronicity: acute Recurrence: not specified as recurrent Qualified Code(s): J01.90 - Acute sinusitis, unspecified - Discharge Information Prescriptions: Amoxicillin 500 mg PO TID #21 tablet Ketorolac [Toradol] 10 mg PO TID PRN #15 tab PRN Reason: Headache Instructions: General Headache Without Cause, Sinusitis, Adult, [id number] Referrals: PCP,None [Primary Care Provider] - Sepsis Event Note - Evaluation Sepsis Screening Result: No Definite Risk - Focused Exam Vital Signs: Vital Signs Temp Pulse Resp BP Pulse Ox 09/12/19 10:58 96.7 F 91 16 142/83 H 100 Date Exam was Performed: 09/12/19 Time Exam was Performed: 11:15 - My Orders Last 24 Hours: My Active Orders 09/12/19 11:14 Ketorolac [Toradol] 60 mg IM ONETIME ONE - Assessment/Plan Last 24 Hours: My Active Orders 09/12/19 11:14 Ketorolac [Toradol] 60 mg IM ONETIME ONE
== END 2019-09-12 11:30 | disposition home or self-care (01) ==
LOC: JD.ED 10:44
DX: J01.90 Acute sinusitis, unspecified (principal); F41.9 Anxiety disorder, unspecified; I10 Essential (primary) hypertension; K21.9 Gastro-esophageal reflux disease without esophagitis; F31.9 Bipolar disorder, unspecified; K27.9 Peptic ulcer, site unspecified, unspecified as acute or chronic, without hemorrhage or perforation; Z79.899 Other long term (current) drug therapy
CPT/HCPCS: 96372; 99283; J1885; 99284

== ENCOUNTER 2024-04-17 07:14 | Observation (INO) | payer OTHER ==
[2024-04-17] MEDS: Sodium Chloride 0.9% 1,000 ML IV ONE (07:45)
[2024-04-17] MEDS: Ondansetron 4 MG/2 ML SDV IVPUSH ONE (07:46)
[2024-04-17 07:56] LABS: BASOPHILS PERCENT AUTO 0.2 % (0.0-1.0); EOSINOPHILS ABSOLUTE AUTO 0.1 K/mm3 (0.0-0.4); EOSINOPHILS PERCENT AUTO 0.5 % (0.0-6.0); HEMATOCRIT 44.5 % (37.0-47.0); HEMOGLOBIN 14.9 gm/dl (12.0-16.0); IMMATURE GRAN ABSOLUTE AUTO 0.02 K/mm3 (0.00-0.05); IMMATURE GRAN PERCENT AUTO 0.2 % (0.0-0.4); LYMPHOCYTES ABSOLUTE AUTO 1.2 K/mm3 (1.0-4.8); LYMPHOCYTES PERCENT AUTO 11.9 % (24.0-44.0); MEAN CORPUSCULAR HEMOGLOBIN 33.1 pg (28.0-32.0); MEAN CORPUSCULAR HGB CONC 33.5 g/dl (32.0-36.0); MEAN CORPUSCULAR VOLUME 98.9 fl (83.0-99.0); MONOCYTES ABSOLUTE AUTO 0.5 K/mm3 (0.0-0.8); NEUTROPHILS ABSOLUTE AUTO 7.9 K/mm3 (1.8-7.7); NEUTROPHILS PERCENT AUTO 82.2 % (41.0-71.0); PLATELET COUNT,PLT 234 K/mm3 (150-400); WHITE BLOOD CELL COUNT,WBC 9.64 K/mm3 (3.9-11.3)
[2024-04-17] MEDS: Sodium Chloride 0.9% 10 ML Syringe FLUSH ONE (08:02)
[2024-04-17] MEDS: Iopamidol 612 MG/ML 100 ML Bottle IVPUSH ONE (08:02)
[2024-04-17 08:25] LABS: A/G RATIO 1.4 (1-2); ALANINE AMINOTRANSFERASE,ALT 32 U/L (14-59); ALBUMIN 4.2 g/dl (3.4-5.0); ALKALINE PHOSPHATASE 80 U/L (46-116); ANION GAP 15.9 (5-15); ASPARTATE AMNIOTRANSFERASE,AST 15 U/L (15-37); BILIRUBIN TOTAL 0.9 mg/dL (0.2-1.0); BLOOD UREA NITROGEN,BUN 14 mg/dL (7-18); BUN/CREATININE RATIO 17.5 (14-18); CALCIUM 9.7 mg/dL (8.5-10.1); CARBON DIOXIDE,CO2 25 mEq/L (21-32); CHLORIDE,CL 102 mEq/L (98-107); CREATININE 0.8 mg/dL (0.55-1.02); EST CRCL DRUG DOSING (CG) 75.41 mL/min; ESTIMATED GFR 97 mL/min (>60); GLUCOSE RANDOM 95 mg/dL (70-99); LIPASE 44 U/L (16-77); POTASSIUM,K 3.9 mEq/L (3.5-5.1); PROTEIN TOTAL,TP 7.3 g/dl (6.4-8.2); SODIUM,NA 139 mEq/L (136-145)
[2024-04-17 08:27] LABS: TROPONIN I HIGH SENSITIVITY < 4 pg/mL (<=51)
[2024-04-17] MEDS ORDERED: Fluticasone NASAL Spray 16 GM Bottle NAS SCH (09:00)
[2024-04-17 09:13] LABS: APPEARANCE,URINE CLEAR (Clear); BILIRUBIN,URINE NEGATIVE (Negative); COLOR,URINE LIGHT YELLOW (Yellow); GLUCOSE,URINE NEGATIVE (Negative); KETONES,URINE NEGATIVE (Negative); LEUKOCYTE ESTERASE,URINE NEGATIVE (Negative); NITRITE,URINE NEGATIVE (Negative); OCCULT BLOOD,URINE NEGATIVE (Negative); PROTEIN,URINE NEGATIVE (Negative); UROBILINOGEN,URINE 0.2 (0.2-1.0)
[2024-04-17] MEDS ORDERED: Propofol 200 MG/20 ML SDV ONE (10:01)
[2024-04-17] MEDS ORDERED: Midazolam 1 MG/ML 2 ML SDV ONE (10:01)
[2024-04-17] MEDS ORDERED: fentaNYL 250 MCG/5 ML SDV ONE (10:02)
[2024-04-17] MEDS ORDERED: Rocuronium 50 MG/5 ML Vial ONE (10:04)
[2024-04-17] MEDS ORDERED: Ondansetron 4 MG/2 ML SDV ONE (10:04)
[2024-04-17] MEDS ORDERED: ceFAZolin 2 GM Vial ONE (10:11)
[2024-04-17] MEDS ORDERED: HYDROmorphone 0.5 MG/0.5 ML Syringe IVPUSH PRN (11:03)
[2024-04-17] MEDS ORDERED: Ondansetron 4 MG/2 ML SDV IVPUSH PRN (11:03)
[2024-04-17] MEDS ORDERED: fentaNYL 100 MCG/2 ML SDV IVPUSH PRN (11:03)
[2024-04-17] MEDS: EPINEPHrine 1 MG/ML SDV ONE (11:39)
[2024-04-17] MEDS: Bupivacaine 0.5% 30 ML SDV ONE (11:39)
[2024-04-17] MEDS: Ketorolac 15 MG/ML SDV IVPUSH ONE (12:32)
[2024-04-17] MEDS: ceFAZolin 2 GM in Sodium Chloride 0.9% 50 ML IV ONE (13:04)
[2024-04-17] MEDS: busPIRone 5 MG Tab PO SCH (13:24)
[2024-04-17] MEDS: OLANZapine 5 MG Tab PO SCH ×2 (13:24→20:35)
[2024-04-17] MEDS: Pantoprazole 40 MG Tab.CR PO SCH (13:24)
[2024-04-17] MEDS: Topiramate 100 MG Tab PO SCH (13:25)
[2024-04-17] MEDS: Famotidine 20 MG Tab PO SCH (13:25)
[2024-04-17] MEDS: Lactated Ringers 1,000 ML IV SCH (13:40)
[2024-04-17] MEDS: hydrOXYzine HCl 25 MG Tab PO SCH (17:07)
[2024-04-17] MEDS: Acetaminophen 325 MG Tab PO PRN (17:09)
[2024-04-17] MEDS: oxyCODONE 5 MG Tab PO PRN (20:37)
[2024-04-18 03:30] VITALS: BP 125/74; PULSE 80
== END 2024-04-18 08:45 | disposition home or self-care (01) ==
LOC: JD.ED 07:14 → JD.SDS 10:46 → JD.MS 12:05
PROVIDERS: ADMIT Surgery; ATTEND Surgery
DX: K56.609 Unspecified intestinal obstruction, unspecified as to partial versus complete obstruction (principal); F31.9 Bipolar disorder, unspecified; F41.1 Generalized anxiety disorder; I10 Essential (primary) hypertension; F20.9 Schizophrenia, unspecified; J95.4 Chemical pneumonitis due to anesthesia; K21.9 Gastro-esophageal reflux disease without esophagitis; Z98.84 Bariatric surgery status; E78.00 Pure hypercholesterolemia, unspecified; Z79.899 Other long term (current) drug therapy
CPT/HCPCS: 36415; 49329; 74177; 80053; 81003; 83690; 83735; 84484; 84703; 85025; 93005; 96361; 96374; 99285; A9270; J0171; J0665; J0690; J1885; J2250; J2405; J2704; J3010; J3490; J7030; J7120; Q9967; 93010; G0378

== ENCOUNTER 2024-05-09 07:33 | Emergency (ER) | payer OTHER ==
[2024-05-09 07:45] VITALS: BP 179/111; PULSE 119
[2024-05-09] MEDS: OLANZapine 5 MG Tab PO ONE (08:43)
[2024-05-09] MEDS: Cyclobenzaprine 10 MG Tab PO ONE (08:43)
[2024-05-09] MEDS: Dextrose 5%-Lactated Ringers 1,000 ML IV SCH (08:43)
== END 2024-05-09 10:15 | disposition left against medical advice (07) ==
LOC: JD.ED 07:33
DX: S30.1XXA Contusion of abdominal wall, initial encounter (principal); M47.22 Other spondylosis with radiculopathy, cervical region; F31.0 Bipolar disorder, current episode hypomanic; I10 Essential (primary) hypertension; K21.9 Gastro-esophageal reflux disease without esophagitis; F17.210 Nicotine dependence, cigarettes, uncomplicated; Z90.49 Acquired absence of other specified parts of digestive tract; Z79.899 Other long term (current) drug therapy; Z79.51 Long term (current) use of inhaled steroids; X58.XXXA Exposure to other specified factors, initial encounter
CPT/HCPCS: 96360; 99283; A9270; J7121

== ENCOUNTER 2024-12-06 22:20 | Emergency (ER) | payer BC, OTHER ==
[2024-12-06 22:32] VITALS: BP 167/97; PULSE 94
[2024-12-06] MEDS: LORazepam 2 MG/ML SDV IM ONE (23:06)
== END 2024-12-06 23:21 | disposition home or self-care (01) ==
LOC: JD.ED 22:20
DX: F31.9 Bipolar disorder, unspecified (principal); G47.00 Insomnia, unspecified; F60.1 Schizoid personality disorder; E78.00 Pure hypercholesterolemia, unspecified; I10 Essential (primary) hypertension; Z79.899 Other long term (current) drug therapy; Z71.89 Other specified counseling
CPT/HCPCS: 93005; 96372; 99284; J2060; 93010

== ENCOUNTER 2024-12-26 17:23 | Emergency (ER) | payer BC ==
[2024-12-26 18:01] LABS: BASOPHILS PERCENT AUTO 0.3 % (0.0-1.0); EOSINOPHILS ABSOLUTE AUTO 0.1 K/mm3 (0.0-0.4); EOSINOPHILS PERCENT AUTO 0.8 % (0.0-6.0); IMMATURE GRAN ABSOLUTE AUTO 0.04 K/mm3 (0.00-0.05); IMMATURE GRAN PERCENT AUTO 0.3 % (0.0-0.4); LYMPHOCYTES ABSOLUTE AUTO 1.9 K/mm3 (1.0-4.8); LYMPHOCYTES PERCENT AUTO 15.4 % (24.0-44.0); MEAN CORPUSCULAR HEMOGLOBIN 30.3 pg (28.0-32.0); MEAN CORPUSCULAR HGB CONC 33.3 g/dl (32.0-36.0); MEAN PLATELET VOLUME 10.1 fl (9.4-12.3); MONOCYTES ABSOLUTE AUTO 0.7 K/mm3 (0.0-0.8); MONOCYTES PERCENT AUTO 5.4 % (0.0-8.0); NEUTROPHILS ABSOLUTE AUTO 9.7 K/mm3 (1.8-7.7); NEUTROPHILS PERCENT AUTO 77.8 % (41.0-71.0); RED BLOOD CELL COUNT 4.62 M/mm3 (4.10-5.30)
[2024-12-26 18:02] LABS: MEAN CORPUSCULAR VOLUME 90.9 fl (83.0-99.0); PLATELET COUNT,PLT 323 K/mm3 (150-400)
[2024-12-26] MEDS: Ondansetron 4 MG/2 ML SDV IVPUSH ONE (18:06)
[2024-12-26] MEDS: Sodium Chloride 0.9% 1,000 ML IV SCH (18:06)
[2024-12-26] MEDS: Sodium Chloride 0.9% 10 ML Syringe FLUSH PRN (18:07)
[2024-12-26 18:34] LABS: A/G RATIO 1.2 (1-2); ALBUMIN 4.3 g/dl (3.4-5.0); ANION GAP 15.3 (5-15); BILIRUBIN TOTAL 0.9 mg/dL (0.2-1.0); BUN/CREATININE RATIO 5.6 (14-18); CALCIUM 9.2 mg/dL (8.5-10.1); CREATININE 1.6 mg/dL (0.55-1.02); EST CRCL DRUG DOSING (CG) 37.34 mL/min; ETHANOL BLOOD MEDICAL 0.01 gm% (0.00); MAGNESIUM 1.8 mg/dL (1.8-2.4); POTASSIUM,K 4.3 mEq/L (3.5-5.1); TSH 2.632 uIU/mL (0.358-3.74)
[2024-12-26 18:59] VITALS: BP 160/99; PULSE 105
== END 2024-12-26 19:07 | disposition home or self-care (01) ==
LOC: JD.ED 17:23
DX: R07.89 Other chest pain (principal); R42 Dizziness and giddiness; R19.7 Diarrhea, unspecified; I10 Essential (primary) hypertension; F17.210 Nicotine dependence, cigarettes, uncomplicated; Z79.899 Other long term (current) drug therapy; Z90.49 Acquired absence of other specified parts of digestive tract
CPT/HCPCS: 36415; 71045; 80053; 80143; 80178; 80179; 80307; 83735; 84443; 84484; 84703; 85025; 93005; 96361; 96374; 99285; J2405; J7030; 93010; 99284

== ENCOUNTER 2024-12-31 10:21 | Emergency (ER) | payer BC ==
[2024-12-31] MEDS: Sodium Chloride 0.9% 10 ML Syringe FLUSH PRN (11:36)
[2024-12-31 11:43] LABS: BASOPHILS PERCENT AUTO 0.3 % (0.0-1.0); EOSINOPHILS ABSOLUTE AUTO 0.2 K/mm3 (0.0-0.4); EOSINOPHILS PERCENT AUTO 1.9 % (0.0-6.0); HEMATOCRIT 40.6 % (37.0-47.0); IMMATURE GRAN ABSOLUTE AUTO 0.03 K/mm3 (0.00-0.05); IMMATURE GRAN PERCENT AUTO 0.3 % (0.0-0.4); LYMPHOCYTES ABSOLUTE AUTO 1.7 K/mm3 (1.0-4.8); LYMPHOCYTES PERCENT AUTO 18.1 % (24.0-44.0); MEAN CORPUSCULAR HEMOGLOBIN 29.9 pg (28.0-32.0); MEAN CORPUSCULAR VOLUME 93.3 fl (83.0-99.0); MEAN PLATELET VOLUME 10.1 fl (9.4-12.3); MONOCYTES ABSOLUTE AUTO 0.4 K/mm3 (0.0-0.8); MONOCYTES PERCENT AUTO 4.6 % (0.0-8.0); NEUTROPHILS ABSOLUTE AUTO 6.9 K/mm3 (1.8-7.7); NEUTROPHILS PERCENT AUTO 74.8 % (41.0-71.0); PLATELET COUNT,PLT 253 K/mm3 (150-400); RED BLOOD CELL COUNT 4.35 M/mm3 (4.10-5.30); WHITE BLOOD CELL COUNT,WBC 9.17 K/mm3 (3.9-11.3)
[2024-12-31] MEDS: Famotidine 20 MG Tab PO ONE (12:03)
[2024-12-31] MEDS: Alum Hydrox/Mag Hydrox/Simeth 30 ML, Lidocaine 2% 15 ML PO ONE (12:04)
[2024-12-31 12:11] LABS: A/G RATIO 1.2 (1-2); ALANINE AMINOTRANSFERASE,ALT 23 U/L (14-59); ALBUMIN 4.1 g/dl (3.4-5.0); ALKALINE PHOSPHATASE 100 U/L (46-116); ANION GAP 13.6 (5-15); ASPARTATE AMNIOTRANSFERASE,AST 14 U/L (15-37); BILIRUBIN TOTAL 0.8 mg/dL (0.2-1.0); BLOOD UREA NITROGEN,BUN 9 mg/dL (7-18); BUN/CREATININE RATIO 8.2 (14-18); CALCIUM 9.3 mg/dL (8.5-10.1); CARBON DIOXIDE,CO2 25 mEq/L (21-32); CHLORIDE,CL 105 mEq/L (98-107); CREATININE 1.1 mg/dL (0.55-1.02); EST CRCL DRUG DOSING (CG) 54.31 mL/min; ESTIMATED GFR 66 mL/min (>60); GLUCOSE RANDOM 95 mg/dL (70-99); LIPASE 62 U/L (16-77); POTASSIUM,K 3.6 mEq/L (3.5-5.1); PROTEIN TOTAL,TP 7.4 g/dl (6.4-8.2); SODIUM,NA 140 mEq/L (136-145)
[2024-12-31 12:12] LABS: TROPONIN I HIGH SENSITIVITY < 4 pg/mL (<=51)
[2024-12-31 15:03] VITALS: BP 161/92; PULSE 72
== END 2024-12-31 13:50 | disposition home or self-care (01) ==
LOC: JD.ED 10:21
DX: I10 Essential (primary) hypertension (principal); R07.9 Chest pain, unspecified; K21.9 Gastro-esophageal reflux disease without esophagitis; F17.210 Nicotine dependence, cigarettes, uncomplicated; Z79.899 Other long term (current) drug therapy; Z90.49 Acquired absence of other specified parts of digestive tract
CPT/HCPCS: 36415; 71045; 80053; 83690; 84484; 84703; 85025; 93005; 99285; A9270; 93010; 99283

== ENCOUNTER 2025-01-18 14:13 | Emergency (ER) | payer BC ==
[2025-01-18 14:59] VITALS: BP 152/85; PULSE 62
[2025-01-18 15:18] LABS: BASOPHILS PERCENT AUTO 0.5 % (0.0-1.0); EOSINOPHILS ABSOLUTE AUTO 0.2 K/mm3 (0.0-0.4); EOSINOPHILS PERCENT AUTO 2.3 % (0.0-6.0); HEMATOCRIT 38.8 % (37.0-47.0); HEMOGLOBIN 12.6 gm/dl (12.0-16.0); IMMATURE GRAN ABSOLUTE AUTO 0.03 K/mm3 (0.00-0.05); IMMATURE GRAN PERCENT AUTO 0.4 % (0.0-0.4); LYMPHOCYTES ABSOLUTE AUTO 1.9 K/mm3 (1.0-4.8); LYMPHOCYTES PERCENT AUTO 22.6 % (24.0-44.0); MEAN CORPUSCULAR HEMOGLOBIN 30.1 pg (28.0-32.0); MEAN CORPUSCULAR HGB CONC 32.5 g/dl (32.0-36.0); MEAN CORPUSCULAR VOLUME 92.8 fl (83.0-99.0); MONOCYTES ABSOLUTE AUTO 0.6 K/mm3 (0.0-0.8); MONOCYTES PERCENT AUTO 7.1 % (0.0-8.0); NEUTROPHILS ABSOLUTE AUTO 5.6 K/mm3 (1.8-7.7); NEUTROPHILS PERCENT AUTO 67.1 % (41.0-71.0); PLATELET COUNT,PLT 304 K/mm3 (150-400); RED BLOOD CELL COUNT 4.18 M/mm3 (4.10-5.30); WHITE BLOOD CELL COUNT,WBC 8.29 K/mm3 (3.9-11.3)
[2025-01-18 15:30] LABS: A/G RATIO 1.2 (1-2); ANION GAP 10.3 (5-15); BILIRUBIN TOTAL 0.8 mg/dL (0.2-1.0); BUN/CREATININE RATIO 14.5 (14-18); CALCIUM 9.7 mg/dL (8.5-10.1); CREATININE 1.1 mg/dL (0.55-1.02); EST CRCL DRUG DOSING (CG) 54.31 mL/min; POTASSIUM,K 4.3 mEq/L (3.5-5.1); PROTEIN TOTAL,TP 7.4 g/dl (6.4-8.2)
[2025-01-18] MEDS: Sodium Chloride 0.9% 1,000 ML IV STA (15:34)
[2025-01-18] MEDS: Metoclopramide 10 MG/2 ML SDV IVPUSH ONE (15:35)
[2025-01-18] MEDS: Iopamidol 612 MG/ML 100 ML Bottle IVPUSH ONE (15:56)
[2025-01-18] MEDS: Sodium Chloride 0.9% 10 ML Syringe FLUSH PRN (15:56)
[2025-01-18 16:08] LABS: APPEARANCE,URINE CLEAR (Clear); BILIRUBIN,URINE NEGATIVE (Negative); COLOR,URINE YELLOW (Yellow); GLUCOSE,URINE NEGATIVE (Negative); KETONES,URINE NEGATIVE (Negative); LEUKOCYTE ESTERASE,URINE NEGATIVE (Negative); NITRITE,URINE NEGATIVE (Negative); OCCULT BLOOD,URINE NEGATIVE (Negative); PROTEIN,URINE NEGATIVE (Negative); UROBILINOGEN,URINE 0.2 (0.2-1.0)
[2025-01-18 16:27] LABS: BACTERIA,URINE OCCASIONAL /hpf (FEW); MUCUS,URINE NOT SEEN /hpf (FEW); RBC,URINE 0-5 /hpf (0-5); SQUAMOUS EPITHELIAL CELLS,UR 0-5 /hpf (0-5); WBC,URINE 0-5 /hpf (0-5)
== END 2025-01-18 17:35 | disposition home or self-care (01) ==
LOC: JD.ED 14:13
DX: K59.09 Other constipation (principal); I10 Essential (primary) hypertension; E78.00 Pure hypercholesterolemia, unspecified; Z79.899 Other long term (current) drug therapy
CPT/HCPCS: 36415; 74177; 80053; 81001; 83690; 84703; 85025; 96361; 96374; 99284; J2765; J7030; Q9967

== ENCOUNTER 2025-01-21 06:06 | Emergency (ER) | payer BC ==
[2025-01-21 06:24] VITALS: BP 148/84; PULSE 57
[2025-01-21] MEDS: Ketorolac 30 MG/ML SDV IVPUSH ONE (06:42)
[2025-01-21 06:52] LABS: APPEARANCE,URINE CLEAR (Clear); BILIRUBIN,URINE NEGATIVE (Negative); COLOR,URINE YELLOW (Yellow); GLUCOSE,URINE NEGATIVE (Negative); KETONES,URINE NEGATIVE (Negative); LEUKOCYTE ESTERASE,URINE NEGATIVE (Negative); NITRITE,URINE NEGATIVE (Negative); OCCULT BLOOD,URINE NEGATIVE (Negative); PROTEIN,URINE NEGATIVE (Negative); UROBILINOGEN,URINE 0.2 (0.2-1.0)
[2025-01-21 06:59] LABS: BASOPHILS PERCENT AUTO 0.4 % (0.0-1.0); EOSINOPHILS ABSOLUTE AUTO 0.3 K/mm3 (0.0-0.4); HEMATOCRIT 42.4 % (37.0-47.0); HEMOGLOBIN 13.5 gm/dl (12.0-16.0); IMMATURE GRAN ABSOLUTE AUTO 0.03 K/mm3 (0.00-0.05); IMMATURE GRAN PERCENT AUTO 0.4 % (0.0-0.4); LYMPHOCYTES ABSOLUTE AUTO 1.6 K/mm3 (1.0-4.8); LYMPHOCYTES PERCENT AUTO 19.1 % (24.0-44.0); MEAN CORPUSCULAR HGB CONC 31.8 g/dl (32.0-36.0); MEAN CORPUSCULAR VOLUME 94.2 fl (83.0-99.0); MEAN PLATELET VOLUME 10.7 fl (9.4-12.3); MONOCYTES ABSOLUTE AUTO 0.6 K/mm3 (0.0-0.8); MONOCYTES PERCENT AUTO 6.6 % (0.0-8.0); NEUTROPHILS ABSOLUTE AUTO 5.9 K/mm3 (1.8-7.7); NEUTROPHILS PERCENT AUTO 70.5 % (41.0-71.0); PLATELET COUNT,PLT 282 K/mm3 (150-400); WHITE BLOOD CELL COUNT,WBC 8.32 K/mm3 (3.9-11.3)
[2025-01-21] MEDS ORDERED: Sodium Chloride 0.9% 10 ML Syringe FLUSH ONE (06:59)
[2025-01-21 07:21] LABS: A/G RATIO 1.2 (1-2); ALBUMIN 4.3 g/dl (3.4-5.0); ANION GAP 12.9 (5-15); BILIRUBIN TOTAL 1.2 mg/dL (0.2-1.0); BUN/CREATININE RATIO 10.9 (14-18); CALCIUM 9.3 mg/dL (8.5-10.1); CREATININE 1.1 mg/dL (0.55-1.02); EST CRCL DRUG DOSING (CG) 54.31 mL/min; POTASSIUM,K 3.9 mEq/L (3.5-5.1); PROTEIN TOTAL,TP 7.8 g/dl (6.4-8.2)
[2025-01-21 07:24] LABS: LACTIC ACID 0.5 mmol/L (0.4-2.0)
[2025-01-21] MEDS: Iopamidol 612 MG/ML 100 ML Bottle IVPUSH ONE (07:36)
[2025-01-21] MEDS: Sodium Chloride 0.9% 10 ML Syringe FLUSH PRN (07:36)
== END 2025-01-21 12:15 | disposition home or self-care (01) ==
LOC: JD.ED 06:06
DX: K59.09 Other constipation (principal); I10 Essential (primary) hypertension; K21.9 Gastro-esophageal reflux disease without esophagitis; Z79.899 Other long term (current) drug therapy; Z90.49 Acquired absence of other specified parts of digestive tract
CPT/HCPCS: 36415; 74177; 74177-26; 80053; 81003; 83605; 84703; 85025; 96374; 99284; 99285-25; J1885; Q9967

== ENCOUNTER 2025-03-19 19:17 | Emergency (ER) | payer BC ==
[2025-03-19 19:58] LABS: BASOPHILS PERCENT AUTO 0.4 % (0.0-1.0); EOSINOPHILS ABSOLUTE AUTO 0.1 K/mm3 (0.0-0.4); EOSINOPHILS PERCENT AUTO 1.3 % (0.0-6.0); HEMATOCRIT 37.7 % (37.0-47.0); HEMOGLOBIN 12.1 gm/dl (12.0-16.0); IMMATURE GRAN ABSOLUTE AUTO 0.04 K/mm3 (0.00-0.05); IMMATURE GRAN PERCENT AUTO 0.4 % (0.0-0.4); LYMPHOCYTES ABSOLUTE AUTO 1.9 K/mm3 (1.0-4.8); LYMPHOCYTES PERCENT AUTO 17.6 % (24.0-44.0); MEAN CORPUSCULAR HEMOGLOBIN 28.3 pg (28.0-32.0); MEAN CORPUSCULAR HGB CONC 32.1 g/dl (32.0-36.0); MEAN CORPUSCULAR VOLUME 88.3 fl (83.0-99.0); MEAN PLATELET VOLUME 9.9 fl (9.4-12.3); MONOCYTES ABSOLUTE AUTO 0.3 K/mm3 (0.0-0.8); MONOCYTES PERCENT AUTO 2.9 % (0.0-8.0); NEUTROPHILS ABSOLUTE AUTO 8.1 K/mm3 (1.8-7.7); NEUTROPHILS PERCENT AUTO 77.4 % (41.0-71.0); PLATELET COUNT,PLT 327 K/mm3 (150-400); RED BLOOD CELL COUNT 4.27 M/mm3 (4.10-5.30)
[2025-03-19 20:10] LABS: BARBITURATE SCREEN,URINE NEGATIVE (CUTOFF=200); BENZODIAZEPINES SCREEN,URINE NEGATIVE (CUTOFF=150); BUPRENORPHINE SCREEN,URINE NEGATIVE (CUTOFF=10); METHADONE SCREEN, URINE NEGATIVE (CUTOFF=200); METHAMPHETAMINES SCREEN, URINE NEGATIVE (CUTOFF=500); OXYCODONE SCREEN,URINE NEGATIVE (CUT0FF=100); THC SCREEN,URINE 20 NG/ML NEGATIVE (CUTOFF=50)
[2025-03-19 20:12] LABS: AMPHETAMINES SCREEN, URINE NEGATIVE (CUTOFF=500)
[2025-03-19 20:27] LABS: A/G RATIO 1.2 (1-2); ALBUMIN 3.9 g/dl (3.4-5.0); ANION GAP 16.2 (5-15); BILIRUBIN TOTAL 0.6 mg/dL (0.2-1.0); BUN/CREATININE RATIO 16.7 (14-18); CALCIUM 8.8 mg/dL (8.5-10.1); CREATININE 0.9 mg/dL (0.55-1.02); EST CRCL DRUG DOSING (CG) 66.37 mL/min; ETHANOL BLOOD MEDICAL 0.28 gm% (0.00); MAGNESIUM 2.3 mg/dL (1.8-2.4); POTASSIUM,K 4.2 mEq/L (3.5-5.1); PROTEIN TOTAL,TP 7.3 g/dl (6.4-8.2); TSH 1.943 uIU/mL (0.358-3.74)
[2025-03-19] MEDS: Nicotine 14 MG/24 Hr Patch TRDERM ONE (21:52)
[2025-03-19] MEDS: LORazepam 2 MG/ML SDV IVPUSH ONE (22:13)
[2025-03-20 01:06] LABS: APPEARANCE,URINE CLEAR (Clear); BILIRUBIN,URINE NEGATIVE (Negative); COLOR,URINE LIGHT YELLOW (Yellow); GLUCOSE,URINE NEGATIVE (Negative); KETONES,URINE NEGATIVE (Negative); LEUKOCYTE ESTERASE,URINE NEGATIVE (Negative); NITRITE,URINE NEGATIVE (Negative); OCCULT BLOOD,URINE NEGATIVE (Negative); PH,URINE 6.5 (5.0-8.0); PROTEIN,URINE NEGATIVE (Negative); UROBILINOGEN,URINE 0.2 (0.2-1.0)
[2025-03-20] MEDS: LORazepam 2 MG/ML SDV IVPUSH ONE (07:00)
[2025-03-20 07:35] VITALS: BP 134/75; PULSE 78
== END 2025-03-20 07:35 ==
LOC: JD.ED 19:17
DX: R45.851 Suicidal ideations (principal); F10.129 Alcohol abuse with intoxication, unspecified; F32.A Depression, unspecified; I10 Essential (primary) hypertension; E66.9 Obesity, unspecified; M19.90 Unspecified osteoarthritis, unspecified site; K21.9 Gastro-esophageal reflux disease without esophagitis; Z79.899 Other long term (current) drug therapy; Z86.16 Personal history of COVID-19; Z90.49 Acquired absence of other specified parts of digestive tract
CPT/HCPCS: 36415; 70450; 72125; 80053; 80143; 80178; 80179; 80306; 80307; 81003; 83735; 84443; 84703; 85025; 96374; 96376; 99285; A9270; J2060